=== PATIENT | female | born 1975 | race Caucasian/White ===

== ENCOUNTER 2020-12-22 18:06 | Emergency (ER) | payer BC ==
[2020-12-22] MEDS ORDERED: Sodium Chloride 0.9% 10 ML Syringe FLUSH PRN ×2 (18:11→19:36)
--- NOTE | 2020-12-22 18:44 | EDM.PDOC ---
ED HPI GENERAL MEDICAL PROBLEM - General Stated Complaint: stroke code Time Seen by Provider: 12/22/20 18:48 Source of Information: Reports: Patient History Limitations: Reports: No Limitations - History of Present Illness INITIAL COMMENTS - FREE TEXT/NARRATIVE: Pt. presents to ER with complaints of R sided facial droop, dysarthria, and L sided upper and lower extremity weakness. Pt. states that she has a headache. Daughter states that she went out to mow at 5:20 and came back into the house shortly thereafter at around 1720 and noticed the symptoms. Pt. denies and history of previous stroke, brain aneurysm, metastatic disease or other pathology. Pt. presented to ER via private vehicle. She was awake and alert and able to recall events of the day. She denies any chest pain or shortness of breath. No nausea, vomiting, or diarrhea. She does complain of some mild headache but denies any other complaints. Unfortunately I am unable to access the patient's EMR. All information was obtained from patient, family, and referral facility. Onset: Today Onset Date: 12/22/20 Onset Time: 19:45 Location: Reports: Head, Generalized Associated Symptoms: Reports: Headaches, Weakness. Denies: Confusion, Chest Pain, Cough, Fever/Chills, Loss of Appetite, Nausea/Vomiting - Related Data Allergies Allergy/AdvReac Type Severity Reaction Status Date / Time codeine Allergy Hallucinati Verified 11/06/14 21:11 ons iodine Allergy Other Verified 11/06/14 21:11 nitrofurantoin Allergy Itching Verified 11/06/14 21:11 [From Macrobid] nitrofurantoin Allergy Itching Verified 11/06/14 21:11 macrocrystalline [From Macrobid] paroxetine HCl [From Paxil] Allergy Swelling Verified 11/06/14 21:11 Penicillins Allergy Hives Verified 11/06/14 21:11 Home Meds: Home Meds Cyclobenzaprine HCl 1 tab PO TID 11/06/14 [History] Lidocaine 700 mg TP ASDIRECTED 11/06/14 [History] buPROPion HCL [Bupropion HCl] 1 tab PO ASDIRECTED 11/06/14 [History] clonazePAM [Clonazepam] 1 tab PO TID 11/06/14 [History] lamoTRIgine [Lamotrigine] 03/25/15 [History] traMADol HCl [Tramadol HCl] 2 tab PO QID 11/06/14 [History] Past Medical History Other Musculoskeletal History: Degenerative Disc Disease ED ROS GENERAL - Review of Systems Review Of Systems: See Below Constitutional: Reports: No Symptoms HEENT: Reports: Other (blurred vision earlier in the day) Cardiovascular: Reports: No Symptoms Endocrine: Reports: No Symptoms GI/Abdominal: Reports: No Symptoms : Reports: No Symptoms Musculoskeletal: Reports: No Symptoms Skin: Reports: No Symptoms Neurological: Reports: Trouble Speaking, Weakness, Gait Disturbance, Other (See HPI) Psychiatric: Reports: No Symptoms Hematologic/Lymphatic: Reports: No Symptoms Immunologic: Reports: No Symptoms ED EXAM, GENERAL - Physical Exam Exam: See Below Exam Limited By: No Limitations General Appearance: Alert, WD/WN, No Apparent Distress Eye Exam: Bilateral Eye: EOMI, Normal Fundi, Vision Changes (states had blurred vision earlier in the day.) Throat/Mouth: Normal Inspection, Normal Lips, Normal Teeth, Normal Oropharynx, Normal Voice, No Airway Compromise Head: Atraumatic, Normocephalic Neck: Normal Inspection, Supple, Non-Tender, Full Range of Motion Respiratory/Chest: No Respiratory Distress, Lungs Clear, Normal Breath Sounds, No Accessory Muscle Use, Chest Non-Tender Cardiovascular: Normal Peripheral Pulses, Regular Rate, Rhythm, No Edema, No JVD, No Murmur Peripheral Pulses: 4+: Radial (R) GI/Abdominal: Soft, Non-Tender, No Organomegaly, No Distention, No Mass (Female) Exam: Deferred Rectal (Female) Exam: Deferred Back Exam: Normal Inspection, Full Range of Motion Extremities: Normal Inspection, Normal Range of Motion, Non-Tender, No Pedal Edema, Normal Capillary Refill Neurological: Alert, Oriented, Other (R sided facial droop, L sided upper and lower extremity weakness. Dysarthria noted. Please refer to attached NIH stroke scale for specific information.) Psychiatric: Normal Affect, Normal Mood Skin Exam: Warm, Dry, Intact, Normal Color, No Rash #2 Interpretation Rhythm: NSR [place]: Normal P-Wave: Present QRS: Normal ST-T: Normal QT: Normal Comparison: NA - No Prior EKG Course - Orders/Labs/Meds Orders: Active Orders 24 hr Category Date Time Status EKG Documentation Completion [RC] STAT Care 12/22/20 18:12 Active EKG Documentation Completion [RC] STAT Care 12/22/20 19:36 Ordered CBC WITH AUTO DIFF [HEME] Stat Lab 12/22/20 19:36 Ordered COMPREHENSIVE METABOLIC PN,CMP [CHEM] Stat Lab 12/22/20 19:36 Ordered INR,PT,PROTHROMBIN TIME [COAG] Stat Lab 12/22/20 19:36 Ordered TROPONIN I HIGH SENSITIVITY [CHEM] Stat Lab 12/22/20 19:37 Ordered UA RFX INES AND CULT IF INDIC [URIN] Stat Lab 12/22/20 18:11 Ordered Sodium Chloride 0.9% [Saline Flush] Med 12/22/20 18:11 Active 10 ml FLUSH ASDIRECTED PRN Sodium Chloride 0.9% [Saline Flush] Med 12/22/20 19:36 Ordered 10 ml FLUSH ASDIRECTED PRN Peripheral IV Insertion Adult [OM.PC] Routine Oth 12/22/20 18:12 Ordered Peripheral IV Insertion Adult [OM.PC] Routine Oth 12/22/20 19:37 Ordered Medication Orders Sodium Chloride (Sodium Chloride 0.9% 10 Ml Syringe) 10 ml FLUSH ASDIRECTED PRN PRN Reason: Keep Vein Open Sodium Chloride (Sodium Chloride 0.9% 10 Ml Syringe) 10 ml FLUSH ASDIRECTED PRN PRN Reason: Keep Vein Open Labs: Laboratory Tests 12/22/20 12/22/20 12/22/20 Range/Units 18:24 18:31 18:31 APTT 29.6 (25.6-32.8) SEC POC Glucose 125 H (70-99) mg/dL Magnesium 2.0 (1.8-2.4) mg/dL Troponin I High Sens 9 (<=51) ng/L C-Reactive Protein 8.2 H (<=0.9) mg/dL Meds: Medications Generic Name Dose Route Start Last Admin Trade Name Freq PRN Reason Stop Dose Admin Sodium Chloride 10 ml 12/22/20 18:11 Sodium Chloride 0.9% 10 Ml Syringe FLUSH ASDIRECTED PRN Keep Vein Open Sodium Chloride 10 ml 12/22/20 19:36 Sodium Chloride 0.9% 10 Ml Syringe FLUSH ASDIRECTED PRN Keep Vein Open Discontinued Medications Generic Name Dose Route Start Last Admin Trade Name Freq PRN Reason Stop Dose Admin Fentanyl 50 mcg 12/22/20 19:28 Fentanyl 50 Mcg/Ml Sdv IVPUSH 12/22/20 19:29 ONETIME ONE - Re-Assessments/Exams Free Text/Narrative Re-Assessment/Exam: No bleeding on non-contrast head CT. Radiologist favors basilar artery occlusion. Stroke code was called on arrival to ER. Nursing had difficulty obtaining IV access. NIH stroke scale performed and initially was 8. Inclusion/exclusion criteria was obtained. She met criteria for TPA. Discussed finding with Dr. Monk. He advised administration of TPA as well. Discussed findings with patient and family, including risks, benefits, and complications of this medication, including serious bleeding and . They wished to proceed with administration of the medication. Departure - Departure Time of Disposition: 19:45 Disposition: DC/Tfer to Acute Hospital 02 Clinical Impression: CVA (cerebral vascular accident) - Discharge Information Referrals: PCP,Unknown [Primary Care Provider] - Forms: ED Department Discharge, Interfacility Transfer EMTALA - My Orders Last 24 Hours: My Active Orders 12/22/20 18:11 UA RFX INES AND CULT IF INDIC [URIN] Stat Sodium Chloride 0.9% [Saline Flush] 10 ml FLUSH ASDIRECTED PRN 12/22/20 18:12 EKG Documentation Completion [RC] STAT Peripheral IV Insertion Adult [OM.PC] Routine 12/22/20 19:36 EKG Documentation Completion [RC] STAT CBC WITH AUTO DIFF [HEME] Stat COMPREHENSIVE METABOLIC PN,CMP [CHEM] Stat INR,PT,PROTHROMBIN TIME [COAG] Stat Sodium Chloride 0.9% [Saline Flush] 10 ml FLUSH ASDIRECTED PRN 12/22/20 19:37 TROPONIN I HIGH SENSITIVITY [CHEM] Stat Peripheral IV Insertion Adult [OM.PC] Routine - Assessment/Plan Last 24 Hours: My Active Orders 12/22/20 18:11 UA RFX INES AND CULT IF INDIC [URIN] Stat Sodium Chloride 0.9% [Saline Flush] 10 ml FLUSH ASDIRECTED PRN 12/22/20 18:12 EKG Documentation Completion [RC] STAT Peripheral IV Insertion Adult [OM.PC] Routine 12/22/20 19:36 EKG Documentation Completion [RC] STAT CBC WITH AUTO DIFF [HEME] Stat COMPREHENSIVE METABOLIC PN,CMP [CHEM] Stat INR,PT,PROTHROMBIN TIME [COAG] Stat Sodium Chloride 0.9% [Saline Flush] 10 ml FLUSH ASDIRECTED PRN 12/22/20 19:37 TROPONIN I HIGH SENSITIVITY [CHEM] Stat Peripheral IV Insertion Adult [OM.PC] Routine Plan: Pt. will be transported via [facility] ground ambulance. Dr. Monk accepts the patient in transfer. Pt. is a code 1. Family will be accompanying the patient.
--- NOTE | 2020-12-22 18:54 | CT ---
[id number] CT/CT Head Stroke Protocol Exam: CT Head Stroke Protocol Clinical Data: NEUROLOGIC DEFICIT COMPARISON: NO PREVIOUS SIMILAR EXAM IS AVAILABLE FINDINGS: There is abnormal hypodensity corresponding to the occipital lobe bilaterally and the right cerebellar hemisphere This could relate to a basilar artery embolus Report called at time of dictation There is no hemorrhage There is no intracranial thrombus identified IMPRESSION: ABNORMAL PLAIN CT BRAIN ISCHEMIC CHANGES IN POSTERIOR CIRCULATION BILATERALLY CONCERN FOR BASILAR ARTERY DISEASE REPORT CALLED FURTHER EXAMS SUGGESTED Benjy Hanna MD 12/22/20 [id number] Thank you for allowing us to participate in the care of your patient.
[2020-12-22] MEDS ORDERED: fentaNYL 50 MCG/ML SDV IVPUSH ONE (19:28)
[2020-12-22 20:00] LABS: CHLORIDE,CL 96 mmol/L (98-107); SODIUM,NA 134 mmol/L (136-145)
[2020-12-22 20:04] LABS: ANION GAP 12.2 mmol/L (5-15)
== END 2020-12-22 19:45 | disposition short-term general hospital (02) ==
LOC: VM.ED 18:06
DX: I63.9 Cerebral infarction, unspecified (principal); Z88.5 Allergy status to narcotic agent; Z88.1 Allergy status to other antibiotic agents; Z88.8 Allergy status to other drugs, medicaments and biological substances; Z88.0 Allergy status to penicillin; Z79.899 Other long term (current) drug therapy
CPT/HCPCS: 36415; 37195; 70450; 80053; 82947; 83735; 84484; 85025; 85610; 85730; 86140; 93010; 96374; 99284; 99285-25; J2997; J3010

== ENCOUNTER 2021-01-05 12:17 | Emergency (ER) | payer BC ==
[2021-01-05 12:47] VITALS: BP 141/67; PULSE 85
--- NOTE | 2021-01-05 13:28 | EDM.PDOC ---
ED HPI GENERAL MEDICAL PROBLEM - General Chief Complaint: Neurological Problem Stated Complaint: DISORIENTED Time Seen by Provider: 01/05/21 12:50 Source of Information: Reports: Patient, Family, RN, RN Notes Reviewed History Limitations: Reports: No Limitations - History of Present Illness INITIAL COMMENTS - FREE TEXT/NARRATIVE: Patient is a 45-year-old female who presents to ER with her family with complaint of daughter states "acting strangely" this morning. Patient has had 2 strokes in the past couple of weeks, was hospitalized at [facility] in [place] and signed out AMA. Family was upset about the visitation policy at [facility], so took the patient home. Patient has some residual right-sided weakness from previous strokes, and some short-term memory loss. Daughter states this morning her mother was painting her toenails with lotion. No increased weakness, no difficulty with speech. Patient states she remembers doing this and states she does not know why she did it. She states that her family has overreacted and she does not need to be here, states that there is nothing wrong with her. Patient states she did have some diarrhea while in the hospital at [facility], that has since resolved. Otherwise denies nausea vomiting diarrhea, chest pains or shortness of breath, fever or chills. Does admit to some cold symptoms in the past few days. Onset: Today - Related Data Allergies Allergy/AdvReac Type Severity Reaction Status Date / Time codeine Allergy Hallucinati Verified 01/05/21 12:41 ons iodine Allergy Other Verified 01/05/21 12:41 nitrofurantoin Allergy Itching Verified 01/05/21 12:41 [From Macrobid] nitrofurantoin Allergy Itching Verified 01/05/21 12:41 macrocrystalline [From Macrobid] paroxetine HCl [From Paxil] Allergy Swelling Verified 01/05/21 12:41 Penicillins Allergy Hives Verified 01/05/21 12:41 Home Meds: Home Meds Cyclobenzaprine HCl 1 tab PO TID 11/06/14 [History] Lidocaine 700 mg TP ASDIRECTED 11/06/14 [History] buPROPion HCL [Bupropion HCl] 1 tab PO ASDIRECTED 11/06/14 [History] clonazePAM [Clonazepam] 1 tab PO TID 11/06/14 [History] lamoTRIgine [Lamotrigine] 03/25/15 [History] traMADol HCl [Tramadol HCl] 2 tab PO QID 11/06/14 [History] Past Medical History Other Musculoskeletal History: Degenerative Disc Disease ED ROS GENERAL - Review of Systems Review Of Systems: Comprehensive ROS is negative, except as noted in HPI. ED EXAM, GENERAL - Physical Exam Exam: See Below Exam Limited By: No Limitations General Appearance: Alert, WD/WN, No Apparent Distress Eye Exam: Bilateral Eye: EOMI, Normal Inspection Ears: Normal External Exam, Hearing Grossly Normal Nose: Normal Inspection Throat/Mouth: Normal Inspection, Normal Voice, No Airway Compromise Head: Atraumatic, Normocephalic Neck: Normal Inspection, Supple, Non-Tender, Full Range of Motion Respiratory/Chest: No Respiratory Distress, Lungs Clear (left), No Accessory Muscle Use, Chest Non-Tender, Pleural Rub (right) Cardiovascular: Normal Peripheral Pulses, Regular Rate, Rhythm, No Gallop, No JVD, No Murmur, No Rub, Other (trace pedal/lower extremity edema) Peripheral Pulses: 2+: Radial (L), Radial (R) GI/Abdominal: Normal Bowel Sounds, Soft, Non-Tender (Female) Exam: Deferred Rectal (Female) Exam: Deferred Back Exam: Normal Inspection, Full Range of Motion, NT Extremities: Normal Inspection, Normal Range of Motion, Non-Tender, Normal Capillary Refill, No Pedal Edema Neurological: Alert, Oriented, CN II-XII Intact, Normal Cognition, Normal Gait, Normal Reflexes, No Motor/Sensory Deficits Psychiatric: Normal Affect, Normal Mood Skin Exam: Warm, Dry, Intact, Normal Color, No Rash Lymphatic: No Adenopathy Course - Vital Signs Last Recorded V/S: Last Vital Signs Temp 98 F 01/05/21 12:42 Pulse 85 01/05/21 12:42 Resp 20 01/05/21 12:42 BP 141/67 H 01/05/21 12:42 Pulse Ox 94 L 01/05/21 12:42 - Orders/Labs/Meds Orders: Active Orders 24 hr Category Date Time Status UA RFX INES AND CULT IF INDIC [URIN] Stat Lab 01/05/21 12:55 Ordered Labs: Laboratory Tests 01/05/21 01/05/21 Range/Units 13:38 13:38 WBC 13.4 H (4.0-10.0) x10^3/uL RBC 5.40 (4.00-5.50) x10^6/uL Hgb 16.0 (12.0-16.0) g/dL Hct 48.5 H (33.0-47.0) % MCV 89.8 (78.0-93.0) fL MCH 29.6 (26.0-32.0) pg MCHC 33.0 (32.0-36.0) g/dL RDW Coeff of Ahmet 15.6 H (10.0-15.0) % Plt Count 270 D (130-400) x10^3/uL Add Manual Diff Yes Neutrophils % (Manual) 75 (50-80) % Band Neutrophils % 3 (0-6) % Lymphocytes % (Manual) 9 L (25-50) % Reactive Lymphs % 4 H (0) % Monocytes % (Manual) 5 (2-11) % Eosinophils % (Manual) 4 (0-4) % Platelet Estimate Adequate Anisocytosis 1+ slight H Spherocytes 1+ slight H Sodium 135 L (136-145) mmol/L Potassium 3.8 (3.5-5.1) mmol/L Chloride 96 L (98-107) mmol/L Carbon Dioxide 30 (21-32) mmol/L Anion Gap 12.8 (5-15) mmol/L BUN 11 (7-18) mg/dL Creatinine 0.9 (0.55-1.02) mg/dL Est Cr Clr Drug Dosing 70.28 mL/min Estimated GFR (MDRD) > 60 Glucose 96 (70-99) mg/dL Calcium 9.6 (8.5-10.1) mg/dL Corrected Calcium 10.0 (8.5-10.1) mg/dL Total Bilirubin 0.6 (0.2-1.0) mg/dL AST 23 (15-37) U/L ALT 33 (14-59) U/L Alkaline Phosphatase 91 (46-116) U/L Total Protein 8.4 H (6.4-8.2) g/dL Albumin 3.5 (3.4-5.0) g/dL Globulin 4.9 Albumin/Globulin Ratio 0.71 - Re-Assessments/Exams Free Text/Narrative Re-Assessment/Exam: 01/05/21 13:28 Discussed work-up with patient and family. Patient and agreed to lab work, but declined CT of the head at this time. 01/05/21 14:21 Patient initially said she could not urinate, then went to the bathroom and missed the hat. Patient is requesting to go home at this time. Departure - Departure Time of Disposition: 14:22 Disposition: Home, Self-Care 01 Condition: Good Clinical Impression: Anxiety about health - Discharge Information *PRESCRIPTION DRUG MONITORING PROGRAM REVIEWED*: No *COPY OF PRESCRIPTION DRUG MONITORING REPORT IN PATIENT NEYMAR: No Forms: ED Department Discharge Additional Instructions: Return to the ER with any worsening of symptoms Follow-up with your primary care provider in the clinic Sepsis Event Note (ED) - Evaluation Sepsis Screening Result: No Definite Risk - Focused Exam Vital Signs: Vital Signs Temp Pulse Resp BP Pulse Ox 01/05/21 12:42 98 F 85 20 141/67 H 94 L - My Orders Last 24 Hours: My Active Orders 01/05/21 12:55 UA RFX INES AND CULT IF INDIC [URIN] Stat - Assessment/Plan Last 24 Hours: My Active Orders 01/05/21 12:55 UA RFX INES AND CULT IF INDIC [URIN] Stat
[2021-01-05 14:06] LABS: CHLORIDE,CL 96 mmol/L (98-107); SODIUM,NA 135 mmol/L (136-145)
[2021-01-05 14:07] LABS: ANION GAP 12.8 mmol/L (5-15)
== END 2021-01-05 14:25 | disposition home or self-care (01) ==
LOC: VM.ED 12:17
DX: F41.9 Anxiety disorder, unspecified (principal); Z88.5 Allergy status to narcotic agent; Z91.048 Other nonmedicinal substance allergy status; Z88.1 Allergy status to other antibiotic agents; Z88.8 Allergy status to other drugs, medicaments and biological substances; Z88.0 Allergy status to penicillin; Z79.899 Other long term (current) drug therapy
CPT/HCPCS: 36415; 80053; 85025; 99283

== ENCOUNTER 2021-01-26 15:53 | Emergency (ER) | payer BC ==
--- NOTE | 2021-01-26 16:42 | CT ---
[id number] CT/CT Head Stroke Protocol EXAM: CT Head Stroke Protocol CLINICAL DATA: QUESTION CVA/STROKE CODE COMPARISON STUDY: Examinations from December 22 and January 02, 2021. FINDINGS: New areas of hypodensity in the bilateral basal ganglia. This is more prominent on the right. Findings were not seen on prior examination from January 02, 2021. Etiology is nonspecific. Differential diagnosis includes evolving small vessel ischemia. This also includes demyelinating diseases such as multiple sclerosis. MRI of the brain with and without contrast is recommended. No acute intracranial hemorrhage or extra-axial fluid collection. Calvarium intact. Paranasal sinuses and mastoid air cells are clear. IMPRESSION: New areas of hypodensity in the bilateral basal ganglia described above with recommendations. Results relayed to Hussein Cano at time of dictation. Hernandez Boyce MD 01/26/21 [id number] Thank you for allowing us to participate in the care of your patient.
--- NOTE | 2021-01-26 17:02 | EDM.PDOC ---
ED HPI GENERAL MEDICAL PROBLEM - General Chief Complaint: Neuro Symptoms/Deficits Stated Complaint: STROKE CODE Time Seen by Provider: 01/26/21 15:55 Source of Information: Reports: Patient, Family History Limitations: Reports: No Limitations - History of Present Illness INITIAL COMMENTS - FREE TEXT/NARRATIVE: Patient brought in via family her daughter with questionable strokelike symptoms per her daughter over the last week to 2 weeks she has been having intermittent episodes of forgetfulness irritability confusion but today while she was supposed to be getting dressed for doctor's point she started getting aggressive trying to dress her daughter instead of herself questionable left arm weakness and drooping of the lip along with drooping of the arm. Patient was seen here in the ER on 22 December diagnosed with embolic stroke TPA was given she was transferred to [facility] Duration: Hour(s):, Week(s): Associated Symptoms: Reports: Confusion. Denies: Chest Pain, Diaphoresis, Headaches, Loss of Appetite, Nausea/Vomiting, Shortness of Breath - Related Data Allergies Allergy/AdvReac Type Severity Reaction Status Date / Time codeine Allergy Hallucinati Verified 01/05/21 12:41 ons iodine Allergy Other Verified 01/05/21 12:41 nitrofurantoin Allergy Itching Verified 01/05/21 12:41 [From Macrobid] nitrofurantoin Allergy Itching Verified 01/05/21 12:41 macrocrystalline [From Macrobid] paroxetine HCl [From Paxil] Allergy Swelling Verified 01/05/21 12:41 Penicillins Allergy Hives Verified 01/05/21 12:41 Home Meds: Home Meds Cyclobenzaprine HCl 1 tab PO BEDTIME PRN 11/06/14 [History] Lidocaine 700 mg TP ASDIRECTED 11/06/14 [History] ALPRAZolam [Alprazolam] 0.5 mg PO BID 01/05/21 [History] ARIPiprazole [Abilify] 5 mg PO DAILY 01/05/21 [History] Albuterol Sulfate [Albuterol Sulfate HFA] 2 puff INH Q6H PRN 01/05/21 [History] Aspirin 81 mg PO DAILY 01/05/21 [History] Clopidogrel [Plavix] 75 mg PO DAILY 01/05/21 [History] Gabapentin [Neurontin] 900 mg PO TID 01/05/21 [History] Metoprolol Tartrate [Lopressor] 50 mg PO BID 01/05/21 [History] Nicotine [Habitrol] 2 patch TOP DAILY 01/05/21 [History] Nystatin [Nystop] 100,000 unit TOP TID 01/05/21 [History] Venlafaxine HCl [Venlafaxine ER] 150 mg PO DAILY 01/05/21 [History] atorvaSTATin [Lipitor] 80 mg PO BEDTIME 01/05/21 [History] hydroCHLOROthiazide [Hydrochlorothiazide] 12.5 mg PO DAILY 01/05/21 [History] oxyCODONE HCl/Acetaminophen [Endocet 10-325 mg Tablet] 1 each PO Q6H 01/05/21 [History] Past Medical History Respiratory History: Reports: Asthma Other Musculoskeletal History: Degenerative Disc Disease Neurological History: Reports: CVA - Infectious Disease History Infectious Disease History: Reports: None ED ROS GENERAL - Review of Systems Review Of Systems: See Below Constitutional: Reports: No Symptoms HEENT: Reports: No Symptoms Respiratory: Reports: No Symptoms Cardiovascular: Reports: No Symptoms Endocrine: Reports: No Symptoms GI/Abdominal: Reports: No Symptoms : Reports: No Symptoms Musculoskeletal: Reports: No Symptoms Skin: Reports: No Symptoms Neurological: Reports: Confusion. Denies: Dizziness, Headache, Numbness, Paresthesia, Pre-Existing Deficit, Seizure, Syncope, Tingling, Tremors, Trouble Speaking, Difficulty Walking, Weakness Psychiatric: Reports: No Symptoms Hematologic/Lymphatic: Reports: No Symptoms Immunologic: Reports: No Symptoms ED EXAM, NEURO - Physical Exam Exam: See Below General Appearance: Alert, WD/WN, No Apparent Distress, Other (Patient was confused upon exam did not know person place time or president but follows all commands answered other questions appropriately cranial nerves II through XII are tested and intact she has equal taper printed circuit layout bilateral strength is 5 of 5 bilateral equal facial sensation may be decreased a little on) Eye Exam: Bilateral Eye: EOMI, Normal Inspection, PERRL Ears: Normal External Exam, Normal Canal, Hearing Grossly Normal, Normal TMs Nose: Normal Inspection, Normal Mucosa, No Blood Throat/Mouth: Normal Inspection, Normal Lips, Normal Teeth, Normal Gums, Normal Oropharynx, Normal Voice, No Airway Compromise Head Exam: Atraumatic, Normocephalic Neck: Normal Inspection, Supple, Non-Tender, Full Range of Motion Respiratory/Chest: No Respiratory Distress, Lungs Clear, Normal Breath Sounds, No Accessory Muscle Use, Chest Non-Tender Cardiovascular: Normal Peripheral Pulses, Regular Rate, Rhythm, No Edema, No Gallop, No JVD, No Murmur, No Rub GI/Abdominal: Normal Bowel Sounds, Soft, Non-Tender, No Organomegaly, No Distention, No Abnormal Bruit, No Mass, Pelvis Stable Neurological: Alert, Normal Dorsiflexion, CN II-XII Intact, Normal Plantar Flexion, Normal Gait, Normal Reflexes, No Motor/Sensory Deficits, Other (Flat affect). No: Oriented x 3 Extremities: Normal Inspection, Normal Range of Motion, Non-Tender, No Pedal Edema, Normal Capillary Refill Psychiatric: Normal Affect, Normal Mood Skin Exam: Warm, Dry, Intact, Normal Color, No Rash Course - Vital Signs Text/Narrative:: TPA was held secondary to last unknown time of normal and a low NIH stroke score plus the patient having prior strokes with prior given TPA CT head per radiology positive bilateral basal ganglia hypodense areas noted as compared to CT scans from [address] [place] [address] multiple times for. Approximately 55 minutes finally was able to speak with neurology neurology he states patient was seen there last time by him she left AMA she was post to be on [facility] daily as well. He is willing accept transfer and admit for further work-up and MRI December DR Holman per call center will accept pt [phone] - Orders/Labs/Meds Labs: Laboratory Tests 01/26/21 01/26/21 01/26/21 Range/Units 16:03 16:12 16:34 WBC 11.8 H (4.0-10.0) x10^3/uL RBC 4.81 (4.00-5.50) x10^6/uL Hgb 14.3 D (12.0-16.0) g/dL Hct 43.4 (33.0-47.0) % MCV 90.2 (78.0-93.0) fL MCH 29.7 (26.0-32.0) pg MCHC 32.9 (32.0-36.0) g/dL RDW Coeff of Ahmet 15.7 H (10.0-15.0) % Plt Count 195 D (130-400) x10^3/uL Neut % (Auto) 72.9 (50.0-80.0) % Lymph % (Auto) 15.5 L (25.0-50.0) % Spencer % (Auto) 7.5 (2.0-11.0) % Eos % (Auto) 3.8 (0.0-4.0) % Baso % (Auto) 0.3 (0.2-1.2) % PT (9.9-12.5) SEC INR (2.0-3.5) APTT (25.6-32.8) SEC Sodium 136 (136-145) mmol/L Potassium 3.8 (3.5-5.1) mmol/L Chloride 99 (98-107) mmol/L Carbon Dioxide 31 (21-32) mmol/L Anion Gap 9.8 (5-15) mmol/L BUN 9 (7-18) mg/dL Creatinine 0.9 (0.55-1.02) mg/dL Est Cr Clr Drug Dosing TNP Estimated GFR (MDRD) > 60 Glucose 99 (70-99) mg/dL POC Glucose 110 H (70-99) mg/dL Calcium 8.9 (8.5-10.1) mg/dL Corrected Calcium 9.6 (8.5-10.1) mg/dL Total Bilirubin 0.3 (0.2-1.0) mg/dL AST 16 (15-37) U/L ALT 24 (14-59) U/L Alkaline Phosphatase 86 (46-116) U/L Creatine Kinase 76 (26-192) U/L Troponin I High Sens < 4 (<=51) ng/L Total Protein 7.4 (6.4-8.2) g/dL Albumin 3.1 L (3.4-5.0) g/dL Globulin 4.3 Albumin/Globulin Ratio 0.72 /14/ Range/Units 16:34 WBC (4.0-10.0) x10^3/uL RBC (4.00-5.50) x10^6/uL Hgb (12.0-16.0) g/dL Hct (33.0-47.0) % MCV (78.0-93.0) fL MCH (26.0-32.0) pg MCHC (32.0-36.0) g/dL RDW Coeff of Ahmet (10.0-15.0) % Plt Count (130-400) x10^3/uL Neut % (Auto) (50.0-80.0) % Lymph % (Auto) (25.0-50.0) % Spencer % (Auto) (2.0-11.0) % Eos % (Auto) (0.0-4.0) % Baso % (Auto) (0.2-1.2) % PT 10.4 (9.9-12.5) SEC INR 0.9 L (2.0-3.5) APTT 28.8 (25.6-32.8) SEC Sodium (136-145) mmol/L Potassium (3.5-5.1) mmol/L Chloride (98-107) mmol/L Carbon Dioxide (21-32) mmol/L Anion Gap (5-15) mmol/L BUN (7-18) mg/dL Creatinine (0.55-1.02) mg/dL Est Cr Clr Drug Dosing Estimated GFR (MDRD) Glucose (70-99) mg/dL POC Glucose (70-99) mg/dL Calcium (8.5-10.1) mg/dL Corrected Calcium (8.5-10.1) mg/dL Total Bilirubin (0.2-1.0) mg/dL AST (15-37) U/L ALT (14-59) U/L Alkaline Phosphatase (46-116) U/L Creatine Kinase (26-192) U/L Troponin I High Sens (<=51) ng/L Total Protein (6.4-8.2) g/dL Albumin (3.4-5.0) g/dL Globulin Albumin/Globulin Ratio Departure - Departure Time of Disposition: 17:05 Disposition: DC/Tfer to Acute Hospital 02 Condition: Good Clinical Impression: CVA (cerebral vascular accident) - Discharge Information *PRESCRIPTION DRUG MONITORING PROGRAM REVIEWED*: No *COPY OF PRESCRIPTION DRUG MONITORING REPORT IN PATIENT NEYMAR: No Referrals: PCP,Not In Area [Primary Care Provider] - Forms: ED Department Discharge, Interfacility Transfer EMTALA - Problem List & Annotations (1) CVA (cerebral vascular accident) SNOMED Code(s): 941235276 Code(s): I63.9 - CEREBRAL INFARCTION, UNSPECIFIED Status: Acute Current Visit: Yes
[2021-01-26 17:10] LABS: PTT,PARTIAL THROMBOPLSTIN TIME 28.8 SEC (25.6-32.8)
[2021-01-26 17:19] LABS: CHLORIDE,CL 99 mmol/L (98-107); SODIUM,NA 136 mmol/L (136-145)
[2021-01-26 17:24] LABS: ANION GAP 9.8 mmol/L (5-15)
[2021-01-26] MEDS ORDERED: LORazepam 1 MG Tab PO ONE (18:57)
== END 2021-01-26 19:04 | disposition short-term general hospital (02) ==
LOC: VM.ED 15:53
DX: I63.9 Cerebral infarction, unspecified (principal); Z79.82 Long term (current) use of aspirin; Z79.02 Long term (current) use of antithrombotics/antiplatelets; Z88.0 Allergy status to penicillin; Z88.1 Allergy status to other antibiotic agents; Z88.5 Allergy status to narcotic agent; Z91.041 Radiographic dye allergy status
CPT/HCPCS: 70450; 80053; 82550; 82947; 84484; 85025; 85610; 85730; 93005; 99284; 99285; A9270

== ENCOUNTER 2021-06-01 12:49 | Emergency (ER) | payer BC ==
--- NOTE | 2021-06-01 13:26 | EDM.PDOC ---
ED HPI GENERAL MEDICAL PROBLEM - General Stated Complaint: WOUND CHECK Time Seen by Provider: 06/01/21 13:14 Source of Information: Reports: Patient - History of Present Illness INITIAL COMMENTS - FREE TEXT/NARRATIVE: Kari is a 46 y/o female who comes to the ER concerned that a wound on her scalp is infected. She apparently recently had a brain biopsy in [place] a week ago and she was concerned today since the scalp wound had some drainage from it. No fevers. - Related Data Allergies Allergy/AdvReac Type Severity Reaction Status Date / Time codeine Allergy Hallucinati Verified 01/26/21 22:48 ons iodine Allergy Other Verified 01/26/21 22:48 nitrofurantoin Allergy Itching Verified 01/26/21 22:48 [From Macrobid] nitrofurantoin Allergy Itching Verified 01/26/21 22:48 macrocrystalline [From Macrobid] paroxetine HCl [From Paxil] Allergy Swelling Verified 01/26/21 22:48 Penicillins Allergy Hives Verified 01/26/21 22:48 Home Meds: Home Meds Cyclobenzaprine HCl 1 tab PO BEDTIME PRN 11/06/14 [History] Lidocaine 700 mg TP ASDIRECTED 11/06/14 [History] ALPRAZolam [Alprazolam] 0.5 mg PO BID 01/05/21 [History] ARIPiprazole [Abilify] 5 mg PO DAILY 01/05/21 [History] Albuterol Sulfate [Albuterol Sulfate HFA] 2 puff INH Q6H PRN 01/05/21 [History] Aspirin 81 mg PO DAILY 01/05/21 [History] Clopidogrel [Plavix] 75 mg PO DAILY 01/05/21 [History] Gabapentin [Neurontin] 900 mg PO TID 01/05/21 [History] Metoprolol Tartrate [Lopressor] 50 mg PO BID 01/05/21 [History] Nicotine [Habitrol] 2 patch TOP DAILY 01/05/21 [History] Nystatin [Nystop] 100,000 unit TOP TID 01/05/21 [History] Venlafaxine HCl [Venlafaxine ER] 150 mg PO DAILY 01/05/21 [History] atorvaSTATin [Lipitor] 80 mg PO BEDTIME 01/05/21 [History] hydroCHLOROthiazide [Hydrochlorothiazide] 12.5 mg PO DAILY 01/05/21 [History] oxyCODONE HCl/Acetaminophen [Endocet 10-325 mg Tablet] 1 each PO Q6H 01/05/21 [History] Past Medical History Respiratory History: Reports: Asthma Other Musculoskeletal History: Degenerative Disc Disease Neurological History: Reports: CVA - Infectious Disease History Infectious Disease History: Reports: None Review of Systems - Review of Systems Review Of Systems: See Below Constitutional: Reports: No Symptoms Eyes: Reports: No Symptoms Ears: Reports: No Symptoms Nose: Reports: No Symptoms Mouth/Throat: Reports: No Symptoms Respiratory: Reports: No Symptoms Cardiovascular: Reports: No Symptoms GI/Abdominal: Reports: No Symptoms Genitourinary: Reports: No Symptoms Musculoskeletal: Reports: No Symptoms Skin: Reports: Wound (scalp) Neurological: Reports: No Symptoms Psychiatric: Reports: No Symptoms ED EXAM, GENERAL - Physical Exam Exam: See Below Exam Limited By: No Limitations General Appearance: Alert, WD/WN, No Apparent Distress Ears: Hearing Grossly Normal Head: Normocephalic, Other (Note healing surgical incision to left occipital region, no redness or erythema noted. Small amount of serous fluid noted, appears normal healing.) Respiratory/Chest: No Respiratory Distress Extremities: Normal Inspection, Normal Range of Motion, Normal Capillary Refill Neurological: Alert, Oriented, CN II-XII Intact, Normal Reflexes Psychiatric: Normal Affect Skin Exam: Warm, Dry, Intact, Normal Color Course - Vital Signs Text/Narrative:: 1314 The patient was seen by the [employer]ICAL [employer]. No labs indicated. Reassurance given as the wound on her scalp post brain bx was healing well. Bacitracin oint applied. Questions answered. Written instructions given and she left the ER in stable condition. Departure - Departure Time of Disposition: 13:20 Disposition: Home, Self-Care 01 Condition: Good Clinical Impression: Status post stereotactic brain biopsy Scalp wound Qualifiers: Encounter type: initial encounter Open wound type: unspecified Qualified Code(s): S01.00XA - Unspecified open wound of scalp, initial encounter - Discharge Information *PRESCRIPTION DRUG MONITORING PROGRAM REVIEWED*: No *COPY OF PRESCRIPTION DRUG MONITORING REPORT IN PATIENT NEYMAR: No Referrals: PCP,Not In Area [Primary Care Provider] - Additional Instructions: -Keep the wound clean with soap and water. -Apply antibiotic ointment 1-2x daily -Keep follow ups with Sepcialty Providers -Monitor for fever, chills, purulent drainage or other sx of infection. - Problem List & Annotations (1) Scalp wound SNOMED Code(s): 884427071 Code(s): S01.00XA - UNSPECIFIED OPEN WOUND OF SCALP, INITIAL ENCOUNTER Status: Acute Current Visit: Yes Qualifiers: Encounter type: initial encounter Open wound type: unspecified Qualified Code(s): S01.00XA - Unspecified open wound of scalp, initial encounter (2) Status post stereotactic brain biopsy SNOMED Code(s): 749615081 Code(s): Z98.890 - OTHER SPECIFIED POSTPROCEDURAL STATES Status: Acute Current Visit: Yes - Problem List Review Problem List Initiated/Reviewed/Updated: Yes - Assessment/Plan Plan: See Above
[2021-06-01 20:14] VITALS: BP 157/90; PULSE 93
== END 2021-06-01 13:30 | disposition home or self-care (01) ==
LOC: VM.ED 12:49
DX: S01.00XA Unspecified open wound of scalp, initial encounter (principal); J45.909 Unspecified asthma, uncomplicated; Z98.890 Other specified postprocedural states; Z88.5 Allergy status to narcotic agent; Z88.0 Allergy status to penicillin; Z88.8 Allergy status to other drugs, medicaments and biological substances; Z79.899 Other long term (current) drug therapy; X58.XXXA Exposure to other specified factors, initial encounter
CPT/HCPCS: 99283